=== PATIENT | male | born 1980 | race Hispanic/Latino ===

== ENCOUNTER 2018-06-13 14:37 | Emergency (ER) | payer BC ==
[~2018-06-13] VITALS: Ht 182.9 cm; Wt 113.4 kg
--- OUTSIDE RECORDS SUMMARY | 2018-06-13 14:40 | XMS REPORT | Clinical Summary ---
Author Author Ernie Amish Organization [facility] Address Unknown Phone Unavailable Care Team Providers Care Live In Housekeeper Name Role Phone Asked, None Given PCP Unavailable Allergies No Known Allergies Medications Not on file Active Problems Problem Noted Date Sterilization 11/12/2015 Social History Date Tobacco Use Types Packs/Day Years Used Never Assessed Sex Assigned at Date Recorded Not on file Industry Job Start Date Occupation Not on file Not on file Not on file Travel End Travel History Travel Start No recent travel history available. Last Filed Vital Signs Not on file Plan of Treatment Health Maintenance Due Date Last Done Comments INFLUENZA VACCINE 02/06/2018 HEPATITIS B VACCINES Aged Out No longer eligible based on patient's age to complete this topic IPV VACCINES Aged Out No longer eligible based on patient's age to complete this topic MENINGOCOCCAL VACCINE Aged Out No longer eligible based on patient's age to complete this topic Results Not on fileafter 06/12/2017 Insurance Payer Benefit Subscriber ID Type Phone Address Plan / Group BCBS BCBS xxxxxxxxxxxx PPO CHOICE PPO/[employer] PPO (Home) [place] [id number] Advance Directives Patient has advance care planning documents on file. For more information, molina calohun contact: Ernie Lomas [address] [place] [id number]
[2018-06-13] MEDS ORDERED: ACETAMINOPHEN 1000 MG/100 ML IV STA (15:15)
[2018-06-13] MEDS ORDERED: SODIUM CHLORIDE 0.9% 1000ML 1,000 ML IV STA (15:15)
[2018-06-13] MEDS ORDERED: ONDANSETRON HCL INJ 2 MG/ML VIAL IV STA (15:15)
[2018-06-13 15:46] LABS: BASOPHILS % 0.3 % (0.0-1.0); HEMATOCRIT 44.5 % (38.2-49.6); HEMOGLOBIN 15.2 g/dL (14.0-18.0); LYMPHOCYTES # (AUTO) 0.1 (1.0-3.2); LYMPHOCYTES % 2.3 % (18.0-39.1); MEAN CORPUSCULAR HEMOGLOBIN 30.2 pg (28-32); MEAN CORPUSCULAR HGB CONC 34.2 g/dL (31-35); MEAN CORPUSCULAR VOLUME 88.5 fL (81-99); MONOCYTES % 0.5 % (4.4-11.3); NEUTROPHILS # (AUTO) 3.7 (2.1-6.9); NEUTROPHILS % 96.9 % (38.7-80.0); PLATELET COUNT 199 x10e3/uL (140-360); RED BLOOD COUNT 5.03 x10e6/uL (4.3-5.7); RED CELL DISTRIBUTION WIDTH 12.2 % (11.7-14.4)
[2018-06-13 16:00] LABS: STREPTOCOCCUS GRP A ANTIGEN NEGATIVE (NEGATIVE)
[2018-06-13 16:05] LABS: ALANINE AMINOTRANSFERASE 37 IU/L (0-55); ALBUMIN 4.3 g/dL (3.5-5.0); ALBUMIN/GLOBULIN RATIO 1.1 (0.8-2.0); ALKALINE PHOSPHATASE 89 IU/L (40-150); AMYLASE 32 U/L (25-125); ANION GAP 14.3 mmol/L (8-16); BLOOD UREA NITROGEN 11 mg/dL (7-26); BUN/CREATININE RATIO 9 (6-25); CALCIUM 9.6 mg/dL (8.4-10.2); CARBON DIOXIDE 25 mmol/L (22-29); CHLORIDE 102 mmol/L (98-107); CREATININE, SERUM 1.16 mg/dL (0.72-1.25); EST GLOMERULAR FILTRATION RATE > 60 ML/MIN (60-); GLUCOSE 110 mg/dL (74-118); LIPASE 12 U/L (8-78); POTASSIUM 3.3 mmol/L (3.5-5.1); SODIUM 138 mmol/L (136-145)
[2018-06-13 16:06] LABS: INFLUENZAE A&B ANTIGEN (RAPID) NEGATIVE (NEGATIVE)
[2018-06-13 16:39] LABS: CLARITY,URINE CLEAR (CLEAR); COLOR,URINE YELLOW (YELLOW); LEUKOCYTE ESTERASE ,URINE NEGATIVE (NEGATIVE); NITRITE,URINE NEGATIVE (NEGATIVE); PROTEIN,URINE DIPSTICK TRACE (NEGATIVE)
[2018-06-13 16:40] LABS: KETONES,URINE NEGATIVE (NEGATIVE)
[2018-06-13 16:41] LABS: AMPHETAMINES SCREEN,URINE NEGATIVE (NEGATIVE); BENZODIAZEPINES SCREEN,URINE NEGATIVE (NEGATIVE); BILIRUBIN,URINE 1+ (NEGATIVE); PHENCYCLIDINE SCREEN,URINE NEGATIVE (NEGATIVE); URINE UROBILINOGEN 0.2 mg/dL (0.2 - 1)
[2018-06-13 16:48] LABS: BACTERIA,URINE MANY /HPF; EPITHELIAL CELLS,URINE FEW /LPF; MUCUS,URINE MANY (RARE)
--- NOTE | 2018-06-13 17:48 | Diagnostic Imaging Report ---
EXAM: CT Abdomen and Pelvis WITH contrast INDICATION: Vomiting. Fever. Abdominal pain. COMPARISON: None. TECHNIQUE: Abdomen and pelvis were scanned utilizing a multidetector helical scanner from the lung base to the pubic symphysis after administration of IV contrast. Coronal and sagittal reformations were obtained. Routine protocol was performed. Scan was performed when during portal venous phase. IV CONTRAST: 150 mL of Omnipaque 300 ORAL CONTRAST: Water RADIATION DOSE: Total DLP: 849.13 mGy*cm Estimated effective dose: (DLP x 0.015 x size factor) mSv COMPLICATIONS: None FINDINGS: LINES and TUBES: None. LOWER THORAX: 2 mm nodular density in the left base laterally on image 1. Mild bilateral gynecomastia. HEPATOBILIARY: No focal hepatic lesions. No biliary ductal dilation. GALLBLADDER: No radio-opaque stones or sludge. No wall thickening. SPLEEN: No splenomegaly. There are 2 splenules. PANCREAS: No focal masses or ductal dilatation. ADRENALS: No adrenal nodules KIDNEYS/URETERS: Kidneys enhance symmetrically. No hydronephrosis. No cystic or solid mass lesions. No stones. GI TRACT: No abnormal distention, wall thickening, or evidence of bowel obstruction. Appendix is normal. PELVIC ORGANS/BLADDER: Unremarkable. LYMPH NODES: No lymphadenopathy. VESSELS: Unremarkable. PERITONEUM / RETROPERITONEUM: No free air or fluid. BONES: Unremarkable. SOFT TISSUES: Unremarkable. IMPRESSION: 1. No acute abdominal pelvic abnormality. Signed by: Dr. Ely Bryan M.D. on 06/13/2018 5:45 PM
[2018-06-13 18:27] LABS: PLATELET ESTIMATE ADEQUATE; PLATELET MORPHOLOGY COMMENT NORMAL; RBC MORPHOLOGY COMMENT NORMAL
[2018-06-13] MEDS ORDERED: SODIUM CHLORIDE 0.9% 50ML 50 ML ONE (19:57)
[2018-06-13] MEDS ORDERED: IOPAMIDOL 370 MG/ML 200 ML INFUS..BTL INJ ONE (19:57)
== END 2018-06-13 18:42 | disposition home or self-care (01) ==
LOC: ER 14:37
DX: R11.2 Nausea with vomiting, unspecified (principal); R19.7 Diarrhea, unspecified; R10.84 Generalized abdominal pain; B34.9 Viral infection, unspecified
CPT/HCPCS: 36415; 74177; 80053; 80307; 81001; 82150; 83518; 83690; 85025; 87070; 87086; 87400; 99284; J0131; J2405; J7030; Q9967

== ENCOUNTER → 2018-07-04 | Outpatient (CLI) | payer BC ==
--- NOTE | 2018-07-04 13:43 | Diagnostic Imaging Report ---
MRCP CPT code: 22086 History: Abnormal blood work Comparison: None. Technique: Multiplanar, multisequence images of the abdomen were obtained per MRCP protocol. 3D volume rendered reformation images of the biliary tree were performed. No intravenous gadolinium was administered. Findings: Biliary tree: The intra and extrahepatic biliary ducts, cystic duct, common bile duct and the pancreatic duct appear normal. Common bile duct measures 5 mm in diameter and tapers as it approaches the ampulla. No focal biliary dilatation or stricture identified. The gallbladder appears normal. No biliary or gallbladder filling defect identified to suggest calculi. Pancreas duct: Not dilated. Liver: Calculated hepatic fat fraction is 18.6 % consistent with moderate steatosis. No evidence of mass. The right lobe measures 17 cm in craniocaudal dimension. Spleen: Measures 13.6 cm in length. Normal T2 and T1 signal. No mass. Pancreas: Normal T1 and T2 signal. No mass Kidneys: No hydronephrosis. No mass Adrenal glands: No evidence for mass. Lymph nodes: No enlarged abdominal retroperitoneal lymph nodes. Bowel: The stomach and visualized portions of the small bowel and large bowel are normal in diameter normal wall thickness. The appendix is normal. Vasculature: Aorta and IVC are normal in morphology. Lung bases: Clear. Bones: Normal marrow signal. No focal osseous lesions. Soft tissues: There is bilateral gynecomastia. IMPRESSION: 1. Moderate steatosis. 2. Normal biliary tree and pancreas duct. Normal gallbladder. 3. Bilateral gynecomastia. 4. Mild hepatosplenomegaly. No lymphadenopathy. Thank you for your referral. Signed by: Dr. Martha Lopze MD on 07/04/2018 1:40 PM
== END ==
LOC: MRI 08:19
PROVIDERS: ATTEND Internal Medicine Gastroenterology
DX: E80.6 Other disorders of bilirubin metabolism (principal); R79.9 Abnormal finding of blood chemistry, unspecified
CPT/HCPCS: 74181